=== PATIENT | male | born 1965 | race Caucasian/White ===

== ENCOUNTER → 2019-08-27 | Outpatient (CLI) | payer BC ==
--- NOTE | 2019-08-27 10:37 | XR ---
EXAMINATION TYPE: XR KUB DATE OF EXAM: 08/27/2019 COMPARISON: NONE HISTORY: Pain TECHNIQUE: One view abdominal series FINDINGS: The osseous structures are intact. The bowel gas pattern is nonspecific. Calcifications the left upp er quadrant likely related to splenic granuloma. Calcifications the pelvis likely vascular. Mild arth ropathy of the hips. IMPRESSION: 1. Nonspecific abdomen.
== END | disposition home or self-care (01) ==
LOC: RAD 10:10
PROVIDERS: ATTEND Urology
DX: N20.1 Calculus of ureter (principal)
CPT/HCPCS: 74018

== ENCOUNTER 2019-08-28 10:22 | Emergency (ER) | payer BC ==
[2019-08-28] MEDS ORDERED: SODIUM CHLORIDE 0.9% 1,000 ML IV STA (10:47)
--- NOTE | 2019-08-28 10:55 | ED ---
Abdominal Pain HPI - General Chief Complaint: Abdominal Pain Stated Complaint: flank pain Time Seen by Provider: 08/28/19 10:29 Source: patient Mode of arrival: ambulatory Limitations: no limitations - History of Present Illness Initial Comments: Patient is a 53-year-old male presenting to emergency Department with complaints of right lower quadrant pain for the past week. Patient states he started having right flank pain last weekend and went to [facility] who diagnosed him with a 4mm kidney stone. He was given ibuprofen, Flomax, Zofran and was told to follow up with urology. Patient states he saw Dr. Liriano yesterday because he was still having pain. KUB was ordered and did not show the stone. They called his office again today and he recommended him coming to the ER for further evaluation. Patient denies fever, chills. He does admit to nausea and vomiting. Pain right now is 3/10, no present nausea. He admits to having a history kidney stone and it typically does not take this long the past. He has no other complaints at this time. Upon arrival to the ER, his vital signs are stable. - Related Data Previous Rx's Medication Instructions Recorded Cephalexin [Keflex] 500 mg PO BID 5 Days #10 cap 08/28/19 Allergies Allergy/AdvReac Type Severity Reaction Status Date / Time morphine Allergy Anaphylaxis Verified 08/28/19 10:28 Review of Systems ROS Statement: Those systems with pertinent positive or pertinent negative responses have been documented in the HPI. ROS Other: All systems not noted in ROS Statement are negative. Past Medical History Past Medical History: GERD/Reflux, Hyperlipidemia, Hypertension History of Any Multi-Drug Resistant Organisms: None Reported Past Surgical History: Orthopedic Surgery Past Psychological History: No Psychological Hx Reported Smoking Status: Former smoker Past Alcohol Use History: None Reported Past Drug Use History: None Reported General Exam - General Exam Comments Initial Comments: GENERAL: Well-appearing, well-nourished and in no acute distress. HEAD: Atraumatic, normocephalic. EYES: Pupils equal round and reactive to light, extraocular movements intact, sclera anicteric, conjunctiva are normal. ENT: TMs normal, nares patent, oropharynx clear without exudates. Moist mucous membranes. NECK: Normal range of motion, supple without lymphadenopathy or JVD. LUNGS: Breath sounds clear to auscultation bilaterally and equal. No wheezes rales or rhonchi. HEART: Regular rate and rhythm without murmurs, rubs or gallops. ABDOMEN: Soft, nontender, normoactive bowel sounds. No guarding, no rebound. No masses appreciated. No flank pain. : Deferred EXTREMITIES: Normal range of motion, no pitting or edema. No clubbing or cyanosis. NEUROLOGICAL: Normal speech, normal gait. PSYCH: Normal mood, normal affect. SKIN: Warm, Dry, normal turgor, no rashes or lesions noted. Limitations: no limitations Course Vital Signs 08/28/19 08/28/19 10:25 12:53 Temperature 98 F 97 F L Pulse Rate 110 H 70 Respiratory 20 18 Rate Blood Pressure 139/85 141/106 O2 Sat by Pulse 99 96 Oximetry Medical Decision Making - Medical Decision Making Patient is a 53-year-old male presenting with right lower quadrant pain for one week. He was diagnosed a 4 mm kidney stone one week ago at [facility]. Patient does not believe he has passed it yet. Vital signs are stable upon arrival. Lab work looks unremarkable. Urine does show 13 wbc's. Minimal RBC. KUB shows a 3MM calcification in the right pelvis which could be related to ureter stone. No other abnormality seen. Discussed these findings with the patient. Patient has remained comfortable in the ER, declining pain medication. I discussed that the stone that could be in the bladder. She will continue with Flomax, ibuprofen, Zofran as needed for symptom control. He will follow up with Dr. Liriano. He is stable for discharge at this time. Return parameters were discussed with the patient he verbalizes understanding. Patient is in agreement with this plan of care. Case discussed with Dr. Rodriguez. - Lab Data Result diagrams: 08/28/19 11:04 08/28/19 11:04 Lab Results 08/28/19 08/28/19 08/28/19 Range/Units 11:04 11:04 11:04 WBC 5.5 (3.8-10.6) k/uL RBC 4.69 (4.30-5.90) m/uL Hgb 14.0 (13.0-17.5) gm/dL Hct 42.5 (39.0-53.0) % MCV 90.7 (80.0-100.0) fL MCH 29.9 (25.0-35.0) pg MCHC 32.9 (31.0-37.0) g/dL RDW 12.6 (11.5-15.5) % Plt Count 178 (150-450) k/uL Neutrophils % 80 % Lymphocytes % 10 % Monocytes % 6 % Eosinophils % 3 % Basophils % 1 % Neutrophils # 4.4 (1.3-7.7) k/uL Lymphocytes # 0.5 L (1.0-4.8) k/uL Monocytes # 0.3 (0-1.0) k/uL Eosinophils # 0.1 (0-0.7) k/uL Basophils # 0.1 (0-0.2) k/uL Sodium 142 (137-145) mmol/L Potassium 4.4 (3.5-5.1) mmol/L Chloride 108 H (98-107) mmol/L Carbon Dioxide 25 (22-30) mmol/L Anion Gap 9 mmol/L BUN 15 (9-20) mg/dL Creatinine 1.25 (0.66-1.25) mg/dL Est GFR (CKD-EPI)AfAm 75 (>60 ml/min/1.73 sqM) Est GFR (CKD-EPI)NonAf 65 (>60 ml/min/1.73 sqM) Glucose 123 H (74-99) mg/dL Calcium 8.9 (8.4-10.2) mg/dL Total Bilirubin 0.7 (0.2-1.3) mg/dL AST 19 (17-59) U/L ALT 18 (4-49) U/L Alkaline Phosphatase 80 (38-126) U/L Total Protein 6.6 (6.3-8.2) g/dL Albumin 3.8 (3.5-5.0) g/dL Urine Color Yellow Urine Appearance Clear (Clear) Urine pH 6.0 (5.0-8.0) Ur Specific [place] 1.029 (1.001-1.035) Urine Protein Trace H (Negative) Urine Glucose (UA) Negative (Negative) Urine Ketones Negative (Negative) Urine Blood Negative (Negative) Urine Nitrite Negative (Negative) Urine Bilirubin Negative (Negative) Urine Urobilinogen 2.0 (<2.0) mg/dL Ur Leukocyte Esterase Small H (Negative) Urine RBC 5 (0-5) /hpf Urine WBC 13 H (0-5) /hpf Urine Mucus Rare H (None) /hpf Disposition Clinical Impression: Right ureteral calculus, Abdominal pain, UTI (urinary tract infection) Disposition: HOME SELF-CARE Condition: Stable Instructions (If sedation given, give patient instructions): Kidney Stones (ED) Additional Instructions: Please return to the Emergency Department if symptoms worsen or any other concerns. Continue with current medications: flomax, ibuprofen, Zofran. Follow-up with Dr. Liriano. Prescriptions: Cephalexin [Keflex] 500 mg PO BID 5 Days #10 cap Is patient prescribed a controlled substance at d/c from ED?: No Referrals: Benedicto Montoya, [Primary Care Provider] - 1-2 days
[2019-08-28 11:23] LABS: Basophils # (A) 0.1 k/uL (0-0.2); Basophils % (A) 1 %; Eosinophils # (A) 0.1 k/uL (0-0.7); Eosinophils % (A) 3 %; HCT 42.5 % (39.0-53.0); Lymphocytes # (A) 0.5 k/uL (1.0-4.8); Lymphocytes % (A) 10 %; MCH 29.9 pg (25.0-35.0); MCHC 32.9 g/dL (31.0-37.0); MCV 90.7 fL (80.0-100.0); Mean Platelet Volume 8.8; Monocytes # (A) 0.3 k/uL (0-1.0); Monocytes % (A) 6 %; Neutrophils # (A) 4.4 k/uL (1.3-7.7); Neutrophils % (A) 80 %; Platelet Count 178 k/uL (150-450); RBC 4.69 m/uL (4.30-5.90); RDW 12.6 % (11.5-15.5); WBC 5.5 k/uL (3.8-10.6)
[2019-08-28 11:31] LABS: Albumin 3.8 g/dL (3.5-5.0); Calcium 8.9 mg/dL (8.4-10.2); Potassium 4.4 mmol/L (3.5-5.1); Total Bilirubin 0.7 mg/dL (0.2-1.3); Total Protein 6.6 g/dL (6.3-8.2)
[2019-08-28 11:46] LABS: Appearance,Urine Clear (Clear); Bilirubin,Urine Negative (Negative); Blood,Urine Negative (Negative); Color,Urine Yellow; Glucose,Urine (UA) Negative (Negative); Ketones,Urine Negative (Negative); Leukocyte Esterase,Urine Small (Negative); Mucus,Urine Rare /hpf; Nitrite,Urine Negative (Negative); Protein,Urine Trace (Negative); RBC,Urine 5 /hpf (0-5); Specific Gravity,Urine 1.029 (1.001-1.035); WBC,Urine 13 /hpf (0-5)
--- NOTE | 2019-08-28 12:00 | XR ---
EXAMINATION TYPE: XR KUB DATE OF EXAM: 08/28/2019 COMPARISON: NONE HISTORY: Right lower quadrant. TECHNIQUE: One view abdominal series FINDINGS: The osseous structures are intact. The bowel gas pattern is nonspecific. Subsegmental changes at the left lung base. Calcifications in the pelvis are too small to characterize. No suspicious calculi ov erlying the kidneys. Spina bifida occulta noted. IMPRESSION: 1. There is a 3 mm calcification in the right pelvis potentially could be related to ureteral stone bianka duong clinically.
[2019-08-28 12:57] VITALS: BP 141/106; PULSE 70; RESP 18; TEMP 97
== END 2019-08-28 12:55 | disposition home or self-care (01) ==
LOC: EC 10:22
DX: N20.1 Calculus of ureter (principal); N39.0 Urinary tract infection, site not specified; Z87.891 Personal history of nicotine dependence; Z88.5 Allergy status to narcotic agent; Z53.20 Procedure and treatment not carried out because of patient's decision for unspecified reasons
CPT/HCPCS: 36415; 74018; 80053; 81001; 85025; 87086; 96360; 99284

== ENCOUNTER → 2021-05-17 | Outpatient (CLI) | payer BC ==
[2021-05-17 11:09] LABS: Basophils # (A) 0.03 X 10*3/uL (0.00-0.10); Basophils % (A) 0.5 %; Eosinophils # (A) 0.26 X 10*3/uL (0.04-0.35); Eosinophils % (A) 4.2 %; HCT 49.5 % (39.6-50.0); HGB 16.3 g/dL (13.0-17.0); Lymphocytes # (A) 0.96 X 10*3/uL (0.90-5.00); Lymphocytes % (A) 15.5 %; MCH 30.1 pg (27.0-32.0); MCHC 32.9 g/dL (32.0-37.0); MCV 91.5 fL (80.0-97.0); Mean Platelet Volume 11.9 fL (9.5-12.2); Monocytes # (A) 0.51 X 10*3/uL (0.20-1.00); Monocytes % (A) 8.2 %; Neutrophils # (A) 4.44 X 10*3/uL (1.80-7.70); Neutrophils % (A) 71.4 %; Platelet Count 182 X 10*3/uL (140-440); RBC 5.41 X 10*6/uL (4.40-5.60); WBC 6.21 X 10*3/uL (4.50-10.00)
[2021-05-17 20:39] LABS: African American GFR (CKD) 79.7 (60.0-200.0); Albumin 4.5 g/dL (3.8-4.9); Albumin/Globulin Ratio 1.9 (1.60-3.17); Anion Gap 15.2 mmol/L (4.00-12.00); BUN/Creat Ratio 10.17 Ratio (12.00-20.00); Blood Urea Nitrogen 11.9 mg/dL (9.0-27.0); Calcium 9.5 mg/dL (8.7-10.3); Carbon Dioxide 21.3 mmol/L (21.6-31.8); Chol/HDL Ratio 4.45 Ratio; Globulin 2.4 g/dL (1.6-3.3); HDL Cholesterol 33.9 mg/dL (40.00-60.00); LDL Cholesterol,Calculated 92.7 mg/dL (0.0-131.0); Non-African American GFR(CKD) 68.8 (60.0-200.0); Potassium 4.4 mmol/L (3.5-5.5); T4, Free (Free Thyroxine) 1.04 ng/dL (0.800-1.800); Total Bilirubin 0.4 mg/dL (0.30-1.20); Total Protein 6.9 g/dL (6.2-8.2); VLDL Calculation 24.4 mg/dL (5.00-40.00)
== END | disposition home or self-care (01) ==
LOC: LABWHC1 07:22
PROVIDERS: ATTEND Family Medicine
DX: I10 Essential (primary) hypertension (principal); E78.5 Hyperlipidemia, unspecified; R07.9 Chest pain, unspecified; E53.8 Deficiency of other specified B group vitamins; R53.83 Other fatigue; R14.0 Abdominal distension (gaseous)
CPT/HCPCS: 36415; 80053; 80061; 82550; 82607; 84403; 84439; 84443; 85025

== ENCOUNTER 2022-12-10 11:25 | Emergency (ER) | payer BC ==
[2022-12-10 11:36] VITALS: TEMP 98.2
--- NOTE | 2022-12-10 12:12 | XR ---
EXAMINATION TYPE: XR hand complete LT DATE OF EXAM: 12/10/2022 COMPARISON: NONE HISTORY: Pain third and fourth digits TECHNIQUE: Three views are submitted. FINDINGS: The osseous structures are intact. The joint spaces are preserved and there is no acute fracture or dislocation. IMPRESSION: 1. No definite acute fracture or dislocation if symptoms persist, follow-up study in 7 to 10 days wo uld be suggested
--- NOTE | 2022-12-10 12:23 | ED ---
General Adult HPI - General Chief complaint: Extremity Injury, Upper Stated complaint: [facility]- Finger Injury Time Seen by Provider: 12/10/22 11:36 Source: patient, RN notes reviewed Mode of arrival: ambulatory - History of Present Illness Initial comments: 57-year-old male with no significant past medical history presents to the emergency department with left finger pain. 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 He is complaining of left third and fourth digit pain with movement. There is no evidence of trauma or laceration. He does not taken anything for his symptoms. He denies any numbness, tingling, weakness in the extremity. - Related Data Previous Rx's Medication Instructions Recorded Cephalexin [Keflex] 500 mg PO BID 5 Days #10 cap 08/28/19 Allergies Allergy/AdvReac Type Severity Reaction Status Date / Time morphine Allergy Anaphylaxis Verified 12/10/22 11:36 Review of Systems ROS Statement: Those systems with pertinent positive or pertinent negative responses have been documented in the HPI. ROS Other: All systems not noted in ROS Statement are negative. Past Medical History Past Medical History: GERD/Reflux, Hyperlipidemia, Hypertension History of Any Multi-Drug Resistant Organisms: None Reported Past Surgical History: Orthopedic Surgery Past Psychological History: No Psychological Hx Reported Past Alcohol Use History: None Reported Past Drug Use History: None Reported General Exam - General Exam Comments Initial Comments: General: Alert, in no acute distress Head: atraumatic normocephalic. Eyes PERRL, EOMI intact, mucous membranes moist Respiratory: Lungs clear to auscultation bilaterally Cardiovascular: Heart rate regular rate and rhythm Abdominal: Soft without guarding or rebound Extremities: Normal inspection with full range of motion and normal capillary refill, left third and fourth digits without any evidence of trauma or lacerations, range of motion is limited secondary to pain, distal NVI, 2+ radial pulses Neuroogic: alert and oriented 3, CN II-XII intact, able to ambulate with steady gait Skin: warm dry and intact with normal color Course Vital Signs 12/10/22 12/10/22 11:34 13:41 Temperature 98.2 F 98.2 F Pulse Rate 75 76 Respiratory 18 16 Rate Blood Pressure 144/94 136/86 O2 Sat by Pulse 95 97 Oximetry Medical Decision Making - Medical Decision Making Was pt. sent in by a medical professional or institution (SAIMA Quiroz, DEVELOPMENT ARCHITECT, urgent care, hospital, or custodial...) When possible be specific @ -[No] Did you speak to anyone other than the patient for history (EMS, parent, family, police, friend...)? What history was obtained from this source @ -[No] Did you review nursing and triage notes (agree or disagree)? Why? @ -[I reviewed and agree with nursing and triage notes] Were old charts reviewed (outside hosp., previous admission, EMS record, old EKG, old radiological studies, urgent care reports/EKG's, custodial records)? Report findings @ -[No old charts were reviewed] Differential Diagnosis (chest pain, altered mental status, abdominal pain women, abdominal pain men, vaginal bleeding, weakness, fever, dyspnea, syncope, headache, dizziness, GI bleed, back pain, seizure, CVA, palpatations, mental health, musculoskeletal)? @ -[not applicable] EKG interpreted by me (3pts min.). @ -[As above] X-rays interpreted by me (1pt min.). @ -Left hand x-ray negative for any fracture or dislocation CT interpreted by me (1pt min.). @ -[None done] U/S interpreted by me (1pt. min.). @ -[None done] What testing was considered but not performed or refused? (CT, X-rays, U/S, labs)? Why? @ -[None] What meds were considered but not given or refused? Why? @ -[None] Did you discuss the management of the patient with other professionals (professionals i.e. SAIMA Quiroz, DEVELOPMENT ARCHITECT, lab, RT, psych nurse, social science analyst, printed circuit boards plasma etcher, teacher, traffic officer, case technician)? Give summary @ -[No] Was smoking cessation discussed for >3mins.? @ -[No] Was critical care preformed (if so, how long)? @ -[No] Were there social determinants of health that impacted care today? How? (Homelessness, low income, unemployed, alcoholism, drug addiction, transportation, low edu. Level, literacy, decrease access to med. care, halfway, rehab)? @ -[No] Was there de-escalation of care discussed even if they declined (Discuss DNR or withdrawal of care, Hospice)? DNR status @ -[No] What co-morbidities impacted this encounter? (DM, HTN, Smoking, COPD, CAD, Cancer, CVA, ARF, Chemo, Hep., AIDS, mental health diagnosis, sleep apnea, morbid obesity)? @ -[None] Was patient admitted / discharged? Hospital course, mention meds given and route, prescriptions, significant lab abnormalities, going to OR and other pertinent info. @ -Discharged. This is a 57-year-old male who presents to the emergency department with finger pain. Patient had a thorough history and physical exam performed while in the ED. Third and fourth digits are without evidence of trauma or ecchymosis. Patient maintains full range of motion, 2+ radial pulses, distal NVI maintains intact. Patient had imaging performed which was essentially unremarkable. Patient was offered Tylenol and Motrin however he declined at that time. I discussed the results in detail with the patient verbalized understanding and all were addressed. Patient was discharged in stable condition. Return precautions were discussed at length. Case discussed with Dr. Snell Maximus who agrees with plan of care. Undiagnosed new problem with uncertain prognosis? @ -[No] Drug Therapy requiring intensive monitoring for toxicity (Heparin, Nitro, Insulin, Cardizem)? @ -[No] Were any procedures done? @ -[No] Diagnosis/symptom? @ -L hand pain Acute, or Chronic, or Acute on Chronic? @ -acute Uncomplicated (without systemic symptoms) or Complicated (systemic symptoms)? @ -uncomplicated Side effects of treatment? @ -[No] Exacerbation, Progression, or Severe Exacerbation? @ -[No] Poses a threat to life or bodily function? How? (Chest pain, [place], [place], pneumonia, PE, COPD, DKA, ARF, appy, cholecystitis, CVA, Diverticulitis, Homicidal, Suicidal, threat to staff... and all critical care pts) @ -low likelihood Disposition Clinical Impression: Finger pain, left Disposition: HOME SELF-CARE Condition: Stable Additional Instructions: Please return to the nearest emergency department symptoms worsen or persist Is patient prescribed a controlled substance at d/c from ED?: No Referrals: Lilia Martinez MD [Primary Care Provider] - 1-2 days Time of Disposition: 12:24
[2022-12-10 13:42] VITALS: BP 136/86; PULSE 76; RESP 16
== END 2022-12-10 13:42 | disposition home or self-care (01) ==
LOC: EC 11:25
DX: M79.645 Pain in left finger(s) (principal); I10 Essential (primary) hypertension; Z88.5 Allergy status to narcotic agent; W22.8XXA Striking against or struck by other objects, initial encounter; Y99.0 Civilian activity done for income or pay
CPT/HCPCS: 99283

== ENCOUNTER → 2023-07-22 | Outpatient (CLI) | payer BC ==
[2023-07-22 09:54] LABS: African American GFR (CKD) >90 (>60 ml/min/1.73 sqM); Blood Urea Nitrogen 13 mg/dL (9-20); Non-African American GFR(CKD) 86 (>60 ml/min/1.73 sqM)
--- NOTE | 2023-07-25 08:10 | CT ---
EXAMINATION TYPE: CT urogram wo/w con DATE OF EXAM: 07/22/2023 COMPARISON: None HISTORY: kidney stone CT DLP: 4488.1 mGycm Automated exposure control for dose reduction was used. Contrast: None Technique: Axial images 5 mm thick sections. Reconstructed images in the coronal and sagittal plane. Three-D reconstructed images were performed by the technologist on a separate computer. FINDINGS: Limited CT sections are obtained through the lung bases which are clear CT ABDOMEN: Scattered calcified granulomata within the spleen. Liver is unremarkable. Gallbladder is normal. Pancreas is normal. Adrenal glands are unremarkable. Loops of bowel without oral contrast wit hin the abdomen are unremarkable. May be a small hiatal hernia present. Abdominal aorta contains vasc ular calcification. Inferior vena cava is unremarkable. There is some mid mesentery inflammatory change in the epigastric region. This is nonspecific. This m ay be denser along the anterior margin. Follow-up is recommended. CT PELVIS: Urinary bladder is normal. Prostate is normal. The appendix appears normal. Bilateral kidneys: Note is made of a large cyst inferior pole left kidney measuring 6.5 cm. Medial to 0.5 cm cyst is present at the inferior pole left kidney. Tiny cortical renal cysts on the posterior mid left kidney and anterior upper pole left kidney. Upper pole small cortical renal cysts on the rig ht. No renal masses are identified. No hydronephrosis or hydroureter is evident. There is a nonobstru cting 0.3 cm calcification mid right kidney. Three-D reconstructed images through the kidneys appear unremarkable. Renal calyces infundibula and r enal pelves appear normal. Right ureter follows a normal caliber course and contour to the urinary bl adder. Left ureter is not identified in its entirety urinary during this exam. Bladder as visualized appears normal. IMPRESSION: 1. THERE IS A 0.3 CM NONOBSTRUCTING RENAL STONE MID RIGHT KIDNEY. 2. NONSPECIFIC INFLAMMATORY CHANGES WITHIN THE MID MESENTERY. FOLLOW-UP IS RECOMMENDED.
== END | disposition home or self-care (01) ==
LOC: RADCTMAIN 09:15
PROVIDERS: ATTEND Family Medicine
DX: N20.0 Calculus of kidney (principal)
CPT/HCPCS: 82565; 84520; 74178; 36415; 74400; Q9967

== ENCOUNTER 2023-09-06 10:34 | Day surgery (SDC) | payer BC ==
[2023-09-03 09:58] VITALS: BMI 33.7
[~2023-09-06 10:34] MED LIST: LIDOCAINE 1% (10MG/ML) FOR IV START INTRADERMA PRN
[2023-09-06] MEDS: LACTATED RINGERS 1,000 ML IV SCH ×2 (11:52→12:41)
[2023-09-06 12:13] VITALS: TEMP 97.8
[2023-09-06] MEDS ORDERED: PROPOFOL 10 MG/ML 20 ML VIAL IV ONE (12:43)
--- NOTE | 2023-09-06 12:59 | P.PCN ---
Date of Procedure: 09/06/23 Procedure(s) Performed: BRIEF HISTORY: Patient is a 57-year-old pleasant white male male scheduled for an elective colonoscopy as a part of evaluation of prior history of colon polyps. Last colonoscopy was 5 years ago. PROCEDURE PERFORMED: Colonoscopy with snare polypectomy. PREOPERATIVE DIAGNOSIS: History of colon polyps.. IV sedation per Anesthesia. PROCEDURE: After informed consent was obtained, the patient, was brought into the endoscopy unit. IV sedation was administered by Anesthesia under continuous monitoring. Digital rectal examination was normal. Initially the Olympus CF-160 flexible video colonoscope was then inserted in the rectum, gradually advanced into the cecum without any difficulty. Careful examination was performed as the scope was gradually being withdrawn. Ileocecal valve and the appendiceal orifice were visualized and appeared normal. Prep was excellent. Mucosa of the cecum, ascending colon, appeared normal. Transverse colon there was a 5 mm polyp that was removed by cold snare polypectomy. Rest of the transverse colon, descending colon, appeared normal. In the sigmoid there was a 1.2 cm pedunculated polyp that was removed by snare polypectomy. Scattered sigmoid diverticulosis seen. Rest of the sigmoid colon, and rectum appeared normal. Retroflexion was performed in the rectum and no lesions were seen. The patient tolerated the procedure well. IMPRESSION: 5 mm transverse colon polyp status post cold snare polypectomy 1.2 cm pedunculated; polyp status post polypectomy Scattered sigmoid diverticulosis RECOMMENDATIONS: Findings of this examination were discussed with the patient as well as his family. He was advised to follow up with the biopsy results. If the biopsy revealed adenoma he can have a repeat colonoscopy in 3 years..
[2023-09-06 13:34] VITALS: BP 115/78; PULSE 78; RESP 18
== END 2023-09-06 14:00 | disposition home or self-care (01) ==
LOC: ORWHC2ENDO 10:34
PROVIDERS: ATTEND Internal Medicine Gastroenterology
DX: Z12.11 Encounter for screening for malignant neoplasm of colon (principal); D12.3 Benign neoplasm of transverse colon; D12.5 Benign neoplasm of sigmoid colon; K57.30 Diverticulosis of large intestine without perforation or abscess without bleeding; I10 Essential (primary) hypertension; E78.5 Hyperlipidemia, unspecified; K21.9 Gastro-esophageal reflux disease without esophagitis; Z87.891 Personal history of nicotine dependence; Z88.5 Allergy status to narcotic agent; Z79.899 Other long term (current) drug therapy; Z86.010 Personal history of colon polyps
CPT/HCPCS: 88305; 45385; J2704